=== PATIENT | male | born 1970 | race American Indian/Alaskan Native ===

== ENCOUNTER 2017-05-02 16:43 | Emergency (ER) | payer SELFPAY ==
[2017-05-02 17:03] VITALS: BP 130/85
--- NOTE | 2017-05-02 18:21 | XRay Report ---
FINAL REPORT EXAM: XR HIP 2-3V LT HISTORY: left hip pain TECHNIQUE: AP view of the pelvis and single coned-down view of the left hip. PRIORS: None. FINDINGS: No evidence for acute fracture or dislocation is seen. Joint spaces are maintained. The soft tissues demonstrate calcified phleboliths in the pelvis. Bony mineralization is normal. IMPRESSION: No acute soft tissue or bony abnormality noted in the left hip.
== END 2017-05-02 19:50 | disposition left against medical advice (07) ==
LOC: ED 16:43
DX: M25.552 Pain in left hip (principal); Z53.21 Procedure and treatment not carried out due to patient leaving prior to being seen by health care provider
CPT/HCPCS: 93005; 93010

== ENCOUNTER 2017-05-03 16:40 | Emergency (ER) | payer OTHER ==
[2017-05-04] MEDS ORDERED: NORCO 5/325 ONE (07:09)
[2017-05-04] MEDS ORDERED: NORCO 5/325 PO ONE (07:15)
--- NOTE | 2017-05-04 09:57 | XRay Report ---
ROUTINE CHEST, TWO VIEWS: SOB. PA and lateral views demonstrate the heart and mediastinal contour to be of normal size and shape. The lungs are clear and fully expanded and the soft tissues and bony structures are normal. IMPRESSION: Normal study.
[2017-05-04 10:05] LABS: Basophils % (Auto) 0.5 % (0.0-1.8); Eosinophils % (Auto) 0.1 % (0.0-4.3); Hematocrit 43.1 % (35.5-45.6); Hemoglobin 14.3 gm/dl (11.8-15.2); Lymphocytes # (Auto) 2.5 K/mm3 (1.2-5.4); Mean Corpuscular HGB Conc 33 % (32-34); Mean Corpuscular Hemoglobin 29 pg (28-32); Mean Corpuscular Volume 88 fl (84-94); Monocytes # (Auto) 0.9 K/mm3 (0.0-0.8); Platelet Count 315 K/mm3 (140-440); Red Blood Count 4.91 M/mm3 (3.65-5.03)
[2017-05-04 10:15] LABS: INR 1.08 (0.87-1.13)
[2017-05-04 10:16] LABS: Partial Thromboplastin Time 30.5 Sec. (24.2-36.6)
[2017-05-04 10:18] LABS: Alanine Aminotransferase 17 units/L (7-56); Albumin 3.9 g/dL (3.9-5); BUN/Creatinine Ratio 23; Blood Urea Nitrogen 14 mg/dL (9-20); Calcium 9.3 mg/dL (8.4-10.2); Hemolysis Index 7
--- NOTE | 2017-05-04 10:45 | Emergency Department Report ---
ED General Adult HPI - General Chief complaint: Extremity Problem,Nontraumatic Stated complaint: PAIN IN HIP AND LEG Time Seen by Provider: 05/04/17 08:22 Source: patient Mode of arrival: Ambulatory Limitations: No Limitations - History of Present Illness Initial comments: This is a 46-year-old -[place] male patient with history of bilateral lower extremity edema left lower extremity pain 1 week u no history DVT denies hx CHF denies PVD no PNd no fever no chills no dizziness no shortness of breath pain as well as for 10 aching radiating from mid thigh to the ankle pain is estimated by prolonged standing bend and flex and twisted pain relieved by rest.1 Onset/Timin -: week(s) Location: lower extremity Radiation: extremity Severity scale (0 -10): 4 Quality: aching, sharp Consistency: intermittent Improves with: rest Worsens with: movement Associated Symptoms: denies: confusion, chest pain, cough, diaphoresis, fever/ chills, headaches, loss of appetite, malaise, nausea/vomiting, rash, seizure, shortness of breath, syncope, weakness Treatments Prior to Arrival: none - Related Data Previous Rx's Medication Instructions Recorded Last Taken Type Cyclobenzaprine [Flexeril] 10 mg PO BID PRN #20 tablet 05/04/17 Unknown Rx Hydrochlorothiazide [HCTZ] 25 mg PO QDAY #30 tablet 05/04/17 Unknown Rx Naproxen 500 mg PO BID PRN #30 tablet 05/04/17 Unknown Rx Allergies Allergy/AdvReac Type Severity Reaction Status Date / Time No Known Allergies Allergy Unverified 05/02/17 17:03 ED Review of Systems ROS: Stated complaint: PAIN IN HIP AND LEG Other details as noted in HPI Constitutional: denies: chills, fever Eyes: denies: eye pain, eye discharge, vision change ENT: denies: ear pain, throat pain Respiratory: denies: cough, shortness of breath, wheezing Cardiovascular: edema. denies: chest pain, palpitations, dyspnea on exertion, syncope, paroxysmal nocturnal dyspnea Endocrine: no symptoms reported Gastrointestinal: denies: abdominal pain, nausea, diarrhea Genitourinary: denies: urgency, dysuria Musculoskeletal: as per HPI, arthralgia. denies: joint swelling Skin: denies: rash, lesions Neurological: denies: headache, weakness, paresthesias Psychiatric: denies: anxiety, depression Hematological/Lymphatic: denies: easy bleeding, easy bruising ED Past Medical Hx - Past Medical History Previous Medical History?: No - Surgical History Past Surgical History?: No Additional Surgical History: Eye surgery @ age 3 - Social History Smoking Status: Never Smoker Substance Use Type: None - Medications Home Medications: Home Medications Medication Instructions Recorded Confirmed Last Taken Type Cyclobenzaprine [Flexeril] 10 mg PO BID PRN #20 tablet 05/04/17 Unknown Rx Hydrochlorothiazide [HCTZ] 25 mg PO QDAY #30 tablet 05/04/17 Unknown Rx Naproxen 500 mg PO BID PRN #30 tablet 05/04/17 Unknown Rx ED Physical Exam - General Limitations: No Limitations General appearance: alert, in no apparent distress - Head Head exam: Present: atraumatic, normocephalic - Eye Eye exam: Present: normal appearance - ENT ENT exam: Present: mucous membranes moist - Neck Neck exam: Present: normal inspection. Absent: full ROM, lymphadenopathy, thyromegaly - Respiratory Respiratory exam: Present: normal lung sounds bilaterally. Absent: respiratory distress, wheezes, rales, rhonchi, stridor, chest wall tenderness - Cardiovascular Cardiovascular Exam: Present: regular rate, normal rhythm. Absent: systolic murmur, diastolic murmur, rubs, gallop - GI/Abdominal GI/Abdominal exam: Present: soft, normal bowel sounds. Absent: distended, tenderness, guarding, rebound, rigid, mass, bruit, pulsatile mass, hernia - Rectal Rectal exam: Present: deferred - Extremities Exam Extremities exam: Present: full ROM, tenderness (left posterior thigh ), normal capillary refill. Absent: pedal edema, joint swelling, calf tenderness - Expanded Lower Extremity Exam Left Hip exam: Present: normal inspection, full ROM Upper Leg exam: Present: full ROM, tenderness, swelling (left posterior thigh ) . Absent: abrasion, laceration, ecchymosis, deformity, crepidus, dislocation, erythema Knee exam: Present: normal inspection, full ROM Lower Leg exam: Present: normal inspection, full ROM Ankle exam: Present: normal inspection, full ROM Foot/Toe exam: Present: normal inspection, full ROM Neuro vascular tendon exam: Present: no vascular compromise. Absent: pulse deficit, abnormal cap refill, motor deficit, sensory deficit, tendon deficit, extremity cold to touch, pallor, abnormal 2-point discrimination (is), decreased fine/light touch, foot drop, peroneal nerve deficit, significant pain with passive ROM of distal joint Gait: Negative: observed and normal (no unilateral originating) - Back Exam Back exam: Present: normal inspection. Absent: full ROM, tenderness, CVA tenderness (R) (this), CVA tenderness (L), muscle spasm, paraspinal tenderness, vertebral tenderness, rash noted - Neurological Exam Neurological exam: Present: alert, oriented X3, CN II-XII intact, normal gait, reflexes normal - Psychiatric Psychiatric exam: Present: normal affect - Skin Skin exam: Present: warm, dry, intact, normal color. Absent: rash ED Course Vital Signs 05/03/17 05/04/17 05/04/17 17:22 09:20 10:55 Temperature 98.9 F 99.6 F Pulse Rate 125 H 128 H 112 H Respiratory 16 20 Rate Blood Pressure 134/83 118/66 Blood Pressure 125/87 [Right] O2 Sat by Pulse 99 97 96 Oximetry ED Medical Decision Making - Lab Data Result diagrams: 05/04/17 09:20 05/04/17 09:20 - Radiology Data Radiology results: report reviewed, image reviewed normal us LE no dvt, cxr: normal no chf no infiltrates no opacities - Medical Decision Making symtsoms improved with nsaids given in ed there is no ecchymosis rom intact no weaknes no paresthesia, , US negative for dvt, ekg sinus tachycardia NSTEMI, BNP: normal, cmp: normal cbc: normal, trop: neg, pt denies sob no cp no headache no dizziness no pnd, this is not chf, no dvt, no PE , likely chronic PVD, with acute qaud strain, will treat for same with nsaids, muscle relaxant, pt will follow up with primary for evaluation of pvd in 2-3 pt verbalized agreement and understanding of same. Critical care attestation.: If time is entered above; I have spent that time in minutes in the direct care of this critically ill patient, excluding procedure time. ED Disposition Clinical Impression: PVD (peripheral vascular disease) Quadriceps muscle strain Qualifiers: Encounter type: initial encounter Laterality: left Qualified Code(s): S76.112A - Strain of left quadriceps muscle, fascia and tendon, initial encounter Disposition: TO HOME OR SELFCARE Is pt being admited?: No Does the pt Need Aspirin: No Condition: Good Instructions: Muscle Strain (ED), Peripheral Vascular Disorders (ED) Prescriptions: Cyclobenzaprine [Flexeril] 10 mg PO BID PRN #20 tablet PRN Reason: Muscle Spasm Hydrochlorothiazide [HCTZ] 25 mg PO QDAY #30 tablet Naproxen 500 mg PO BID PRN #30 tablet PRN Reason: Pain , Severe (7-10) Referrals: PRIMARY CARE, [Primary Care Provider] - 3-5 Days Forms: Work/School Release Form(ED) Time of Disposition: 11:31
[2017-05-04 11:00] VITALS: BP 118/66
== END 2017-05-04 11:08 | disposition home or self-care (01) ==
LOC: ED 16:40
DX: S76.112A Strain of left quadriceps muscle, fascia and tendon, initial encounter (principal); I73.89 Other specified peripheral vascular diseases; X50.1XXA Overexertion from prolonged static or awkward postures, initial encounter; Y93.89 Activity, other specified; Y92.89 Other specified places as the place of occurrence of the external cause; Y99.8 Other external cause status
CPT/HCPCS: 36415; 71046; 80053; 83880; 84484; 85025; 85610; 85730; 87040; 93005; 93010